=== PATIENT | male | born 1985 | race African-American/Black ===

== ENCOUNTER 2017-09-18 02:54 | Inpatient (IN) | payer MEDICAID, OTHER ==
[~2017-09-18] VITALS: Ht 185.4 cm; Wt 113.4 kg
[2017-09-18 04:06] LABS: BASOPHILS # (AUTO) 0.02 K/uL (0.00-0.20); BASOPHILS % (AUTO) 0.4 % (0.0-2.0); EOSINOPHILS # (AUTO) 0.27 K/uL (0.00-0.70); EOSINOPHILS % (AUTO) 6.27 % (1.0-6.0); HEMATOCRIT 44.4 % (41-53); HEMOGLOBIN 14.8 g/dL (13.5-17.5); LYMPHOCYTES # (AUTO) 1.1 K/uL (1.0-4.8); LYMPHOCYTES % (AUTO) 24.1 % (22.0-44.0); MEAN CORPUSCULAR HEMOGLOBIN 27.7 pg (26.0-34.0); MEAN CORPUSCULAR HGB CONC 33.4 G/dL (31.0-37.0); MEAN CORPUSCULAR VOLUME 83 fL (80-100); MONOCYTES # (AUTO) 0.4 K/uL (0.1-1.0); NEUTROPHILS # (AUTO) 2.6 K/uL (1.8-7.7); NEUTROPHILS % (AUTO) 60.2 % (40.0-70.0); PLATELET COUNT (AUTO) 164 K/uL (150-450); RED BLOOD CELL COUNT(AUTO) 5.35 MIL/uL (4.50-5.90); RED CELL DISTRIBUTION WIDTH 15.2 % (11.5-14.5); WHITE BLOOD COUNT (AUTO) 4.4 K/uL (4.5-11.0)
[2017-09-18 04:14] LABS: ANION GAP 14 mmol/L (8-16); CALCIUM, TOTAL 8.4 mg/dL (8.8-10.5); CARBON DIOXIDE 21 mmol/L (22-29); CHLORIDE 104 mmol/L (98-107); CREATININE 1.38 mg/dL (0.60-1.30); GLOMERULAR FILTR. RATE CALC > 60 mL/min (>60); POTASSIUM 3.8 mmol/L (3.5-5.1); SODIUM SERUM 139 mmol/L (136-145); UREA NITROGEN, BLOOD 16 mg/dL (7-18)
[2017-09-18 04:22] LABS: ALANINE AMINOTRANSFERASE 32 U/L (12-78); ALBUMIN 3.8 g/dL (3.4-5.0); ASPARTATE AMINOTRANSFERASE 27 U/L (15-37); BILIRUBIN,TOTAL 0.3 mg/dL (0.1-1.0); TOTAL PROTEIN, SERUM 8.2 g/dL (6.4-8.2)
[2017-09-18 04:23] LABS: ACETAMINOPHEN < 2 mcg/mL (10-30)
[2017-09-18 04:28] LABS: SALICYLATE < 2.8 mg/dL (2.8-20.0)
[2017-09-18] MEDS ORDERED: ZOLPIDEM TARTRATE 10 MG TABLET PO PRN (06:45)
[2017-09-18] MEDS ORDERED: HALOPERIDOL 5 MG TABLET PO PRN (06:45)
[2017-09-18] MEDS: LORazepam 2 MG TABLET PO PRN ×2 (09:27→16:33)
[2017-09-18 09:41] VITALS: BP 123/79
[2017-09-18 10:50] VITALS: BP 123/79
[2017-09-18] MEDS ORDERED: INFLUENZA VIRUS VACCINE QVS 2017-18 (3YR+)/PF 60 MCG/0.5 ML SYRINGE IM ONE (11:15)
[2017-09-18] MEDS ORDERED: ACETAMINOPHEN 325 MG TABLET PO PRN ×2 (14:15)
[2017-09-18] MEDS ORDERED: IBUPROFEN 400 MG TABLET PO PRN ×2 (14:15)
[2017-09-18 16:00] VITALS: BP 130/87
[2017-09-18] MEDS: RisperiDONE 1 MG TABLET PO SCH (16:33)
[2017-09-18] MEDS: DIVALPROEX SODIUM 500 MG ER TABLET PO SCH (16:33)
[2017-09-19 06:31] VITALS: BP 110/72
[2017-09-19 07:48] LABS: BASOPHILS % (AUTO) 0.3 % (0.0-2.0); EOSINOPHILS % (AUTO) 13.2 % (1.0-6.0); HEMATOCRIT 42.2 % (41-53); HEMOGLOBIN 14.4 g/dL (13.5-17.5); LYMPHOCYTES # (AUTO) 1.3 K/uL (1.0-4.8); LYMPHOCYTES % (AUTO) 35.3 % (22.0-44.0); MEAN CORPUSCULAR HEMOGLOBIN 28.2 pg (26.0-34.0); MEAN CORPUSCULAR HGB CONC 34.2 G/dL (31.0-37.0); MEAN CORPUSCULAR VOLUME 83 fL (80-100); MONOCYTES # (AUTO) 0.3 K/uL (0.1-1.0); MONOCYTES % (AUTO) 9.4 % (2.0-9.0); NEUTROPHILS # (AUTO) 1.5 K/uL (1.8-7.7); NEUTROPHILS % (AUTO) 41.8 % (40.0-70.0); PLATELET COUNT (AUTO) 154 K/uL (150-450); RED BLOOD CELL COUNT(AUTO) 5.11 MIL/uL (4.50-5.90); RED CELL DISTRIBUTION WIDTH 15.1 % (11.5-14.5); WHITE BLOOD COUNT (AUTO) 3.6 K/uL (4.5-11.0)
[2017-09-19 08:06] LABS: CHOL/HDL RATIO 5.3 (4.2-7.3)
[2017-09-19 08:28] VITALS: BP 123/68
[2017-09-19] MEDS: DIVALPROEX SODIUM 500 MG ER TABLET PO SCH ×2 (09:20→16:49)
[2017-09-19] MEDS: RisperiDONE 1 MG TABLET PO SCH ×2 (09:20→16:49)
[2017-09-19] MEDS: LORazepam 2 MG TABLET PO PRN ×2 (10:39→16:49)
[2017-09-19 10:40] VITALS: BP 123/70
[2017-09-19 16:00] VITALS: BP 120/68
[2017-09-20 06:55] VITALS: BP 118/72
[2017-09-20] MEDS: DIVALPROEX SODIUM 500 MG ER TABLET PO SCH (09:24)
[2017-09-20] MEDS: RisperiDONE 1 MG TABLET PO SCH (09:24)
[2017-09-20 10:00] VITALS: BP 130/77
[2017-09-20] MEDS ORDERED: RISP1 PO (13:02)
[2017-09-20] MEDS ORDERED: DIVA500T52 PO (13:02)
== END 2017-09-20 15:55 | disposition home or self-care (01) | DRG 751 ==
LOC: EMS 02:57 → B3A 06:25
PROVIDERS: ADMIT Psychiatry & Neurology Child & Adolescent Psychiatry; ATTEND Psychiatry & Neurology Child & Adolescent Psychiatry
DX: F32.2 Major depressive disorder, single episode, severe without psychotic features (principal); N17.9 Acute kidney failure, unspecified; R45.851 Suicidal ideations; D72.819 Decreased white blood cell count, unspecified; F10.20 Alcohol dependence, uncomplicated; F41.9 Anxiety disorder, unspecified; F19.10 Other psychoactive substance abuse, uncomplicated; Z78.1 Physical restraint status
CPT/HCPCS: 83036; 90471; 93005; 99291; G0480; G0481